=== PATIENT | female | born 1990 | race Caucasian/White ===

== ENCOUNTER 2020-03-13 09:18 | Outpatient (CLI) | payer SELFPAY ==
--- NOTE | 2020-03-13 09:24 | US_ITS ---
STUDY: SECOND AND THIRD TRIMESTER OBSTETRICAL ULTRASOUND - LIMITED REASON FOR EXAM: Female, 29 years old GROWTH. LMP: 06/28/2019 PRIOR ULTRASOUND: None. TECHNIQUE: Transabdominal TECHNICAL QUALITY: Adequate. FINDINGS: There is a single intrauterine fetus. The fetus is in a cephalic presentation. There is demonstrated cardiac activity with a heart rate of 133 bpm. There is a normal amniotic fluid volume. The largest amniotic fluid pocket measures 4.5 cm. The amniotic fluid index (ANTON) is 13.88 cm. The placenta is anterior in location and is not low lying. There are Grade 2 placental changes. The cervix measures 6.3 cm in length. BIOMETRY: BPD: 9.59 cm: 39 weeks, 1 days HC: 35 cm: 40 weeks, 5 days AC: 36.21 cm: 40 weeks, 0 days FL: 7.22 cm: 36 weeks, 6 days Age by LMP: 37 weeks, 0 days. THERESA by LMP: 04/03/2020. age by current US: 39 weeks, 1 days. THERESA by current US: 03/19/2020. Estimated weight: 3763 grams, +/- 564 grams, 96.6 percentile. US/OB Limited With Biometrics IMPRESSION: Single live intrauterine gestation with a mean gestational age of 39 weeks and 1 day. Electronically Signed: Clifford Guerrero, at 11:22 EST , Service support ,
== END 2020-03-13 10:25 | disposition home or self-care (01) ==
LOC: US 09:35 → WP 10:40
PROVIDERS: Referring Provider Obstetrics & Gynecology; Visit Provider Obstetrics & Gynecology
DX: O26.849 Uterine size-date discrepancy, unspecified trimester (principal); Z3A.00 Weeks of gestation of pregnancy not specified
CPT/HCPCS: 76816

== ENCOUNTER → 2021-09-12 | Outpatient (CLI) | payer SELFPAY | END | disposition home or self-care (01) | LOC: LABSPEC 09-13 07:15 | PROVIDERS: Referring Provider Obstetrics & Gynecology; Visit Provider Obstetrics & Gynecology | DX: R31.9 Hematuria, unspecified (principal) | CPT/HCPCS: 87086; 87088 ==

== ENCOUNTER → 2021-09-24 | Outpatient (CLI) | payer SELFPAY ==
--- NOTE | 2021-09-24 13:37 | US_ITS ---
STUDY: SECOND AND THIRD TRIMESTER OBSTETRICAL ULTRASOUND REASON FOR EXAM: Female, 30 years old . Anatomy scan. LMP: 04/29/2021. TECHNIQUE: Transabdominal TECHNICAL QUALITY: Adequate. PRIOR ULTRASOUND: None. FINDINGS: There is a single intrauterine fetus. The fetus is in a variable presentation. There is demonstrated cardiac activity with a heart rate of 153 bpm. There is a normal amniotic fluid volume. The largest amniotic fluid pocket measures 5.4 cm x 5.2 cm. The amniotic fluid index (ANTON) is within normal limits. The placenta is anterior in location and is not low lying. There are Grade 0 placental changes. The cervix measures 4.8 cm in length. The adnexal regions are not visualized. BIOMETRY: BPD: 5.68 cm: 23 weeks, 2 days HC: 21.28 cm: 23 weeks, 2 days AC: 17.86 cm: 22 weeks, 5 days FL: 4.01 cm: 20 weeks, 6 days CI: 76% FL/BPD: 71% FL/HC: FL/AC: 22.5% HC/AC: 1.19 age by current US: 23 weeks, 0 days. THERESA by current US: 01/21/2022. Estimated weight: 547 grams, +/- 82 grams, 99 %. Age by LMP: 21 weeks, 1 days. THERESA by LMP: 02/03/2022. ANATOMY: Gender: Female Cranium: Normal lateral ventricles. Normal choroid plexus. Normal cerebellum. Normal cisterna magna. Normal face, nose and lips. Chest: Normal 4-chamber heart. Abdomen/Pelvis: Normal diaphragm. Normal stomach. Normal abdominal wall. Normal cord insertion. Normal 3 vessel cord. Normal kidneys. Normal bladder. Spine: Some visualization of the cervical, thoracic, lumbar spine and sacrum. Extremities: Normal bilateral upper extremities. Normal bilateral lower extremities. IMPRESSION: Single live intrauterine gestation with mean gestational age of 23 weeks. Electronically Signed: Clifford Guerrero MD at 9:34 EDT , STUDY: FIRST TRIMESTER OBSTETRICAL ULTRASOUND REASON FOR EXAM: Female, 30 years old. Cervical length measurement. LMP: 04/29/2021. TECHNIQUE: Transvaginal TECHNICAL QUALITY: Adequate. PRIOR ULTRASOUND: None. FINDINGS: Cervical length measurement is 4.8 cm. US/OB Anatomy Scan IMPRESSION: Cervical length measurement is 4.8 cm. Electronically Signed: Clifford Guerrero MD at 9:34 EDT ,
== END | disposition home or self-care (01) ==
LOC: OPUS 13:36
PROVIDERS: Visit Provider Obstetrics & Gynecology
DX: Z34.90 Encounter for supervision of normal pregnancy, unspecified, unspecified trimester (principal)
CPT/HCPCS: 76805; 76817

== ENCOUNTER → 2021-10-02 | Outpatient (CLI) | payer SELFPAY ==
[2021-10-02 11:19] LABS: Absolute Lymphocyte Count 1.65 X10^3/uL (0.83-4.51); Absolute Neutrophil Count 6.8 X10^3/uL (2.0-7.7); Basophil# 0.02 X10^3/uL; Basophil% 0.2 % (0-1); Eosinophil# 0.07 X10^3/uL; Eosinophils% 0.8 % (0-5); Hematocrit 34.9 % (37-47); Hemoglobin 11.7 g/dL (12.0-15.0); Lymphocyte # 1.65 X10^3/ul (0.83-4.51); Lymphocyte % 18.3 % (19-41); Mean Corp Hgb Conc 33.5 g/dL (32-36); Mean Corpuscular Hgb 30.8 pg (27.0-32.0); Mean Corpuscular Volume 91.8 fL (81-99); Mean Platelet Vol. 9.2 fl (6.2-12.0); Monocyte# 0.45 X10^3/uL; NRBC Flagged by Analyzer 0 % (0-5); Neutrophil # 6.77 X10^3/uL (2.7-7.7); Neutrophil % 74.9 % (47-70); Platelet Count 207 K/mm3 (150-450); RBC Distribution Width CV 13.2 % (11.6-14.6); RBC Distribution Width SD 44.2 fl (35.1-43.9)
[2021-10-02 11:44] LABS: ALB/GLOB Ratio 0.8 RATIO (0.9-2.4); AST(SGOT) 15 U/L (15-37); Alanine Aminotransfer ALT/SGPT 19 U/L (13-56); Albumin, Serum 3.1 g/dL (3.2-5.0); Alkaline Phosphatase 47 U/L (45-117); Anion Gap 5 (5-15); BUN 7 mg/dL (7-18); BUN/Creat Ratio 11.6 RATIO (10-20); Chloride 108 mmol/L (98-107); EST Glomerular Filtration Rate 122 mL/min (>60); Est Glom Filt Rate - Afr Amer 147 mL/min (>60); Globulin 3.8 g/dL (2.2-4.2); Glucose 94 mg/dL (74-106); Potassium 4.5 mmol/L (3.5-5.1); Protein, Total 6.9 g/dL (6.4-8.2); Sodium Level 139 mmol/L (136-145)
== END | disposition home or self-care (01) ==
PROVIDERS: Referring Provider Obstetrics & Gynecology; Visit Provider Obstetrics & Gynecology
DX: O99.719 Diseases of the skin and subcutaneous tissue complicating pregnancy, unspecified trimester (principal); L29.9 Pruritus, unspecified; Z3A.00 Weeks of gestation of pregnancy not specified
CPT/HCPCS: 36415; 80053; 85025

== ENCOUNTER → 2021-11-05 | Outpatient (CLI) | payer SELFPAY ==
[2021-11-05 14:30] LABS: Glucose Challenge Gest 1H 50g 108 mg/dL (70-140)
== END | disposition home or self-care (01) ==
PROVIDERS: PCP Physician Assistant; Referring Provider Obstetrics & Gynecology; Visit Provider Obstetrics & Gynecology
DX: Z13.1 Encounter for screening for diabetes mellitus (principal)
CPT/HCPCS: 36415; 82950

== ENCOUNTER → 2021-12-31 | Outpatient (CLI) | payer SELFPAY ==
[2021-12-31 16:05] LABS: Absolute Lymphocyte Count 2.15 X10^3/uL (0.83-4.51); Absolute Neutrophil Count 5.7 X10^3/uL (2.0-7.7); Basophil# 0.02 X10^3/uL; Basophil% 0.2 % (0-1); Eosinophil# 0.09 X10^3/uL; Hemoglobin 11.6 g/dL (12.0-15.0); Lymphocyte # 2.15 X10^3/ul (0.83-4.51); Mean Corp Hgb Conc 34.1 g/dL (32-36); Mean Corpuscular Hgb 31.5 pg (27.0-32.0); Mean Corpuscular Volume 92.4 fL (81-99); Mean Platelet Vol. 9.1 fl (6.2-12.0); Monocyte# 0.58 X10^3/uL; Monocyte% 6.8 % (0-10); NRBC Flagged by Analyzer 0 % (0-5); Neutrophil # 5.68 X10^3/uL (2.7-7.7); Neutrophil % 66.2 % (47-70); Platelet Count 195 K/mm3 (150-450); RBC Distribution Width SD 47.1 fl (35.1-43.9); Red Blood Count 3.68 M/mm3 (4.2-5.4); White Blood Count 8.6 K/mm3 (4.4-11.0)
--- NOTE | 2021-12-31 16:07 | US_ITS ---
STUDY: SECOND AND THIRD TRIMESTER OBSTETRICAL ULTRASOUND - LIMITED REASON FOR EXAM: Female, 31 years old. growth. LMP: 04/29/2021. PRIOR ULTRASOUND: 09/24/2021. TECHNIQUE: Transabdominal and Transvaginal TECHNICAL QUALITY: Adequate. FINDINGS: There is a single intrauterine fetus. The fetus is in a cephalic presentation. There is demonstrated cardiac activity with a heart rate of 134 bpm. There is a normal amniotic fluid volume. The largest amniotic fluid pocket measures 6.9 cm. The amniotic fluid index (ANTON) is 18.94 cm. The placenta is anterior in location and is not low lying. There are Grade 2 placental changes. Question placental lakes. The cervix measures 4.7 cm in length. There is fluid versus mucus within the cervical canal. BIOMETRY: BPD: 9.04 cm: 36 weeks, 4 days HC: 33.12 cm: 37 weeks, 5 days AC: 32.6 cm: 36 weeks, 4 days FL: 7.14 cm: 36 weeks, 4 days Age by LMP: 35 weeks, 1 days. THERESA by LMP: 02/03/2022.. age by prior US: 37 weeks, 0 days. THEERSA by prior US: 01/21/2022.. age by current US: 36 weeks, 6 days. THERESA by current US: 01/22/2022.. Estimated weight: 3005 grams, +/- 451 grams, 67 percentile. Gender: Indeterminant US/OB Limited With Biometrics IMPRESSION: 1. Live single intrauterine at 36 weeks, 6 days. THERESA is 01/22/2022. This correlates with adequate interval growth since the prior ultrasound. 2. EFW of 3005 g. 3. ANTON of 18.94 cm. 4. Anterior grade 2 placenta. 5. Vertex presentation. 6. Fluid seen within the cervical canal. Electronically Signed: Orlando Morales DO at 20:34 EDT Reading Location ID and State: [facility] / [place] Tel [phone], Service support ,
== END | disposition home or self-care (01) ==
PROVIDERS: PCP Physician Assistant; Referring Provider Obstetrics & Gynecology; Visit Provider Obstetrics & Gynecology
DX: O99.019 Anemia complicating pregnancy, unspecified trimester (principal); Z3A.00 Weeks of gestation of pregnancy not specified; O36.60X0 Maternal care for excessive fetal growth, unspecified trimester, not applicable or unspecified
CPT/HCPCS: 36415; 76816; 85025; 87081

== ENCOUNTER 2022-01-30 10:09 | Inpatient (IN) | payer SELFPAY ==
[2022-01-30] VITALS (15 sets, daily range): BP systolic 94–130; BP diastolic 43–80; PULSE 65–85; RESP 16–18; TEMP 36.1–36.9; O2SAT 96–100; BMI 37.1
[2022-01-30] MEDS: Lactated Ringers 1,000 ML 999 ML IV (10:55)
[2022-01-30] MEDS: Acetaminophen 500 MG Tablet 1000 MG PO ×2 (10:58→17:44)
--- NOTE | 2022-01-30 11:07 | NURSING ---
Pt stated she did not receive ensure or soap to use in shower prior to surgery.
[2022-01-30 11:16] LABS: Absolute Lymphocyte Count 1.59 X10^3/uL (0.83-4.51); Absolute Neutrophil Count 5.2 X10^3/uL (2.0-7.7); Basophil# 0.02 X10^3/uL; Basophil% 0.3 % (0-1); Eosinophil# 0.05 X10^3/uL; Eosinophils% 0.7 % (0-5); Hemoglobin 12.4 g/dL (12.0-15.0); Lymphocyte # 1.59 X10^3/ul (0.83-4.51); Lymphocyte % 21.6 % (19-41); Mean Corp Hgb Conc 34.4 g/dL (32-36); Mean Corpuscular Hgb 32.4 pg (27.0-32.0); Mean Platelet Vol. 9.5 fl (6.2-12.0); Monocyte# 0.45 X10^3/uL; Monocyte% 6.1 % (0-10); NRBC Flagged by Analyzer 0 % (0-5); Neutrophil % 70.8 % (47-70); Platelet Count 190 K/mm3 (150-450); RBC Distribution Width CV 13.9 % (11.6-14.6); RBC Distribution Width SD 47.7 fl (35.1-43.9); Red Blood Count 3.83 M/mm3 (4.2-5.4); White Blood Count 7.4 K/mm3 (4.4-11.0)
--- NOTE | 2022-01-30 11:29 | HP.PCM.OB_ITS ---
HPI - General General Date of Admission: 01/30/22 HPI Narrative SIMBA ACOSTA, is a 31 @ 40 weeks 3 who presents to labor and delivery for repeat section. Her cervix remains closed and we discussed the risks vs benefits of IOL and the decision was made to proceed with repeat section . Maternal Data Information THERESA Calculator Estimated Delivery Date Method Current WG Current Estimate 01/27/22 LMP (Certain) 40w 3d PFSH PFS Medical History (Updated 01/21/22 @ 15:28 by Faby Aguero) Post depression Home Medications prenat.vits,gisselle,[id number] 1 tab PO DAILY 03/13/20 [History Last Taken 01/29/22] calcium carbonate 500 mg calcium (1,250 mg) tablet 500 mg PO DAILY supplement 09/12/21 [History Last Taken 01/29/22] ferrous sulfate 325 mg (65 mg iron) tablet 325 mg PO DAILY anemia 09/12/21 [History Last Taken 01/29/22] Allergy/AdvReac Type Severity Reaction Status Date / Time No Known Allergies Allergy Verified 01/30/22 10:34 Surgical History (Updated 01/23/22 @ 12:27 by Halima Lorenzo) S/P Social History Smoking Status: Never smoker alcohol intake: never substance use type: does not use what type of physical activity do you participate in: none seatbelt use: always do you feel safe at home: Yes additional social history: Yunior- dairy History 8 Elective abortions Hx Para 5 Spontaneous abortions 2 Hx # Term Pregnancies Ectopic pregnancies Hx # Pregnancies Multiple births # of living children Past Pregnancies Del. Date Name GA/Weeks Outcome Route Bth Weight Infant Gen Labor Lgth Anesthesia Del Locatn Provider FOB 11/11/11 Jose 40 live - full term 9 lbs Male 20 fouzia rs none [facility] Angelique Mojica 09/04/13 Leonardo 41 live - full term 9lbs 15oz Male 12 hours none home Angelique Cali/Anne Mojica 08/06/15 Adis 42 live - full term 9lbs 6oz Male non e home Anne Mojica 03/08/17 Radha 41 live - full term 7lbs 9oz Female alina Umaña/Dr. Mojica 03/28/20 Yassine 39 live - full term 8lbs 9oz Male Maria Dr[address] Bakari Mojica Delivery Date: 11/11/11 Last Updated by: Faby Aguero Severely tore (had to repair with surgery) Delivery Date: 09/04/13 Last Updated by: Faby Aguero No issues with or delivery Tore Delivery Date: 08/06/15 Last Updated by: Faby Aguero No issues with or delivery Tore Delivery Date: 03/08/17 Last Updated by: Zarina Donato nuchal cord x1, meconium, decels Delivery Date: 03/28/20 Last Updated by: Faby Aguero No issues during . Partial placenta rupture. STAT Visit Details OB Flowsheet Initial Weight: Not Recorded Date -?-?-?-?-?-?-?-?-?-?-?-?- EGA Weight BP Urine Prot -?-?-?-?-?-?-?-?-?-?-?-?- Glucose FHR FuHt Pres Dilation -?-?-?-?-?-?-?-?-?-?-?-?- Effaced St Visit Note 09/12/21 -?-?-?-?-?-?-?-?-?-?-?-?- 20w 3d 223 lb 6 oz 100/70 Nega tive -?-?-?-?-?-?-?-?-?-?-?-?- Negative 145 -?-?-?-?-?-?-?-?-?-?-?-?- JV- see HPI pt w illing to come back for an anatomy scan. we discussed but wll need op note due to emergency and increased chance that this was vertical. 10/02/21 -?-?-?-?-?-?-?-?-?-?-?-?- 23w 2d 222 lb 120/80 Negative -?-?-?-?-?-?-?-?-?-?-?-?- Negative -?-?-?-?-?-?-?-?-?-?-?-?- 10/03/21 -?-?-?-?-?-?-?-?-?-?-?-?- 23w 3d 223 lb 100/72 Negative -?-?-?-?-?-?-?-?-?-?-?-?- Negative 153 -?-?-?-?-?-?-?-?-?-?-?-?- JV- pt has a lac y rash on arms and legs as well as abdomen. She gave us a corrected LMP. anatomy scan was normal. LFTs were normal. waiting on uric acid level. will try vistaril. 11/05/21 -?-?-?-?-?-?-?-?-?-?-?-?- 28w 1d 228 lb 118/68 Negative -?-?-?-?-?-?-?-?-?-?-?-?- Negative 141 -?-?-?-?-?-?-?-?-?-?-?-?- JV- gct today. p t will be seeing Anne Umaña in 2 weeks and will alternate with us and her going forward unless needs NSTs for diabets or htn, etc. 12/03/21 -?-?-?-?-?-?-?-?-?-?-?-?- 32w 1d 235 lb 110/67 Negative -?-?-?-?-?-?-?-?-?-?-?-?- Negative 144 34 -?-?-?-?-?--?-?-?-?-?-?-?- JV- notes review ed from Anne Umaña's office. hg istat in her office was 9 ( a significant drop from her October 01 blood draw) recommend official cbc. pt states that she has a doctor in her town that will do the test for $25 and will call us with results. 12/31/21 -?-?-?-?-?-?-?-?-?-?-?-?- 36w 1d 236 lb 98/64 Negative -?-?-?-?-?-?-?-?-?-?-?--?- Negative 145 37 Cephalic 1 -?-?-?-?-?-?-?-?-?-?-?-?- 0 -4 JV-no lof, vaginal bleeding, or dec fm. ultrasound and rpt cbc. she will see next week then weekly with us aftet 37 weeks. JV-no lof, vaginal bleeding, or dec fm. ultrasound and rpt cbc. she will see next week then weekly with us after 37 weeks. we discussed either induction or rpt section at 40 weeks. 01/14/22 -?-?-?-?-?-?-?-?-?-?-?-?- 38w 1d 239 lb 2 oz 132/79 Nega tive -?-?-?-?-?-?-?-?-?-?-?-?- Negative 150 38 Cephalic 2 -?-?-?-?-?-?-?-?-?-?-?-?- 50 -4 JV- normal us last week. planning IOL at 40 weeks if no labor. 01/21/22 -?-?-?-?-?-?-?-?-?-?-?-?- 39w 1d 238 lb 8 oz 115/78 Nega tive -?-?-?-?-?-?-?-?-?-?-?-?- Negative 145 39 Cephalic 1 -?-?-?-?-?-?-?-?-?-?-?-?- 50 -4 LC- no lof , ctx or vb. active fetus. cervical exam unchanged. will be seen in office wednesday, if no change in cervical exam will proceed with rpt c/s for wednesday. collaborated with Dr. Parks Constitutional Constitutional: Denies change in weight, fatigue, fever(s), headache(s), poor appetite or weakness Eyes Eyes: Denies blurry vision, change in vision, seeing flashes or spots in vision ENT HEENT: Denies dizziness, headache(s), loss taste/smell or sore throat Cardiovascular Cardiovascular: Denies chest pain, dizziness, dyspnea, irregular heart rhythm, leg edema, palpitations, rapid heart rate or vomiting Respiratory/Chest Respiratory/Chest: Denies chest tightness, cough, dyspnea or breast pain Gastrointestinal Gastrointestinal: Denies abdominal pain, anorexia, constipation, cramping, diarrhea, hemorrhoids, vomiting or weight changes Genitourinary Genitourinary: Denies dysuria, flank pain, genital lesions, genital pain, urinary frequency or urinary urgency Musculoskeletal Musculoskeletal: Denies back pain, difficulty walking, joint pain, limited range of motion, muscle cramps or numbness Integumentary Integumentary: Denies lesions or unusual bruising Neurologic Neurologic: Denies abnormal movements, abnormal speech, dizziness, numbness, seizure-like activity or syncope Psychiatric Psychiatric: Denies anxiety, behavioral changes, change in appetite, change in libido, cognitive impairment, confusion, depression, difficulty concentrating, hallucinations or suicidal thoughts Endocrine Endocrinology: Denies excessive sweating, polydipsia or polyuria Hematologic/Lymphatic Hematologic/Lymphatic: Denies easy bleeding, easy bruising or lymphadenopathy Allergic/Immunologic Allergic/Immunologic: Denies itchy eyes, lip swelling, seasonal rhinorrhea, rhinitis, throat swelling, tongue swelling, eczemia, wheezing or asthma Vital Signs Vital Signs Vital Signs: 01/30/22 11:07 Temperature 98.4 F Temperature Source Temporal Pulse Rate 81 Respiratory Rate 18 Blood Pressure 123/70 H Blood Pressure Mean 87 Blood Pressure Source Monitor Blood Pressure Position Semi-Fowlers Blood Pressure Location Left Arm Pulse Ox 100 Oxygen Delivery Method Room Air Weight Weight: 237 lb 7.005 oz Body Mass Index (BMI) 37.1 Physical Exam Const alert, oriented x3, no apparent distress and healthy appearing General Appearance: cooperative; Negative for anxious HEENT normocephalic Face and Sinus: normal facial exam Eyes EOMs intact bilaterally and no scleral icterus General Eye: normal appearance of both eyes Neck full ROM and supple Lymph Lymphatic: no lymphadenopathy noted Chest Chest: abnormal inspection of the chest Resp normal respiratory effort Effort and Inspection: able to speak in complete sentences Cardio regular rate GI soft to palpation and non-tender Inspection: gravid Palpation: soft; Negative for tender external exam normal Back/Spine no CVA tenderness Extremity normal to inspection, full ROM and no clubbing, cyanosis or edema General Extremity: Negative for calf tenderness or edema Skin Lesions: no lesions Rashes: no rashes Psych mental status grossly normal Labs Labs Labs: Blood Type Pending Antibody Screen Pending Hct 36.0 % (37-47) L Hgb 12.4 g/dL (12.0-15.0) Pap Smear Negative Obstetrics US Syphilis Total Ab Pending Rubella IgG Antibody Pending Hep Bs Antigen Pending HIV 1&2 Antibody Pending Glucose 1 Hr 50 gm 108 mg/dL (70-140) Miscellaneous Test Assessment & Plan (1) Anemia: (2) PUPP (pruritic urticarial papules and plaques of ): COMMENT: vistaril ordered and supportive care (3) Itching: COMMENT: CBC, CMP & Bile Acids ordered 10/02/21 (4) S/P : COMMENT: due to partial placenta rupture-delivered at [place] plan to share care with Anne Umaña. pt will be seen by us at 28 weeks, anne 30, us 32, etc. she is open to rpt section but hoping for . RLTCS scheduled for 01/30 @ 12 with DELORIS (5) Supervision of normal : COMMENT: Leonardo Garcia Bryan, Lorelle, Raylyn Yunior (6) macrosomia: COMMENT: efw 3800g at 37 weeks, recommend delivery by 40-41 weeks. previous 10lb delivery without complication at home. Baby measuring 99% at anatomy ultrasound. plan to repeat at 36-38 weeks , 12/31 growth US nl 67% (7) : QUALIFIERS: Weeks of gestation: 39 weeks Qualified Code(s): Z3A.39 - 39 weeks gestation of COMMENT: GBS Negative, has seen anne umaña for care. Anatomy norm
[2022-01-30 11:56] LABS: Rubella IgG Reactive (Nonreactive); Syphilis Antibodies Non-reactive
[2022-01-30] MEDS: Sodium Citrate/Citric Acid 30 ML UDC PO (12:08)
[2022-01-30] MEDS: Lactated Ringers 1,000 ML 150 ML IV (12:09)
[2022-01-30 12:20] LABS: HIV - WCH Non-Reactive (Nonreactive); Hepatitis B Surface Antigen Non-Reactive (Nonreactive); Hepatitis C Antibody Non-Reactive (Nonreactive)
[2022-01-30] MEDS: Cefazolin 2 GM in 0.9% Normal Saline 100 ML IV (12:21)
--- NOTE | 2022-01-30 12:25 | DCINST_ITS ---
Discharge Instructions Diet Discharge Diet: No restrictions Activity Discharge Activity: May Not Drive (for 2 weeks or while taking narcotic pain medications.), May Shower and May Take a Tub Bath (in 7 days.) May resume sexual activity in: 4-6 weeks Weight Bearing Status: Full weight bearing Lifting Restrictions: 20 pounds Dressing / Incision Call your doctor if your incision/area has: Continuous Slow Oozing, Sudden Increased Bleeding, Increased Pain/ Swelling, Increased Redness and Foul Smelling Discharge Call your doctor if you observe: Fever of 101 or Higher and Using more than 1 pad per hour Suture Line Care: Avoid Pulling/Pushing and Avoid Pinching/Bending Cleanse incision/area with: Soap & Water and Keep Dressing Clean & Dry Follow Up Care Please Follow Up With: Mavis Graham DO When: Call [phone] to make an appointment for an incision check in 1-2 weeks. Test Results: Test results from this visit will be discussed in further detail at your follow- up appointment, if applicable. Discharge Plan Admission Admit Date/Time: 01/30/22 10:09 Primary Reason for Your Visit: section Attending Provider: Mavis Graham Primary Care Provider: Pako Regan Discharge Orders/Prescriptions Prescriptions: New ibuprofen 600 mg tablet 600 mg PO Q6H PRN (Reason: pain) 7 Days Qty: 28 0RF Rx Instructions: one tab every 6 hrs as needed for mild to moderate pain oxycodone-acetaminophen [Percocet] 5-325 mg tablet 1 tab PO Q4H PRN (Reason: pain) 7 Days Qty: 20 0RF Continued prenat.vits,gisselle,[id number]-mzkbr Tablet 1 tab PO DAILY ferrous sulfate 325 mg (65 mg iron) tablet 325 mg PO DAILY calcium carbonate 500 mg calcium (1,250 mg) tablet 500 mg PO DAILY Referrals / Follow Up: Pako Regan PA-C [Primary Care Provider] - Disposition Disposition (needs filled in before D/C Order can be placed): Home, Self Care
--- NOTE | 2022-01-30 13:13 | OP.PCM_ITS ---
Assessment & Plan (1) Anemia: (2) PUPP (pruritic urticarial papules and plaques of ): COMMENT: vistaril ordered and supportive care (3) Itching: COMMENT: CBC, CMP & Bile Acids ordered 10/02/21 (4) S/P : COMMENT: due to partial placenta rupture-delivered at [place] plan to share care with Migue Hoover. pt will be seen by us at 28 weeks, migue 30, us 32, etc. she is open to rpt section but hoping for . RLTCS scheduled for 01/30 @ 12 with JV (5) Supervision of normal : COMMENT: Jose, Leonardo, Adis, Radha, Yassine Yunior (6) macrosomia: COMMENT: efw 3800g at 37 weeks, recommend delivery by 40-41 weeks. previous 10lb delivery without complication at home. Baby measuring 99% at anatomy ultrasound. plan to repeat at 36-38 weeks , 12/31 growth US nl 67% (7) : QUALIFIERS: Weeks of gestation: 39 weeks Qualified Code(s): Z3A.39 - 39 weeks gestation of COMMENT: GBS Negative, has seen migue hoover for care. Anatomy norm Maternal Data Information THERESA Calculator Estimated Delivery Date Method Current WG Current Estimate 01/27/22 LMP (Certain) 40w 3d Final THERESA: 01/27/22 Final THERESA Source: LMP Gestational age: 40 weeks 3 days Details Operative Information Date of Procedure: 01/30/22 Pre-Operative Diagnosis: 40 weeks 3 days, prior section Post-Operative Diagnosis: 40 weeks 3 days, prior section Indications for : Repeat Elective Classification: Scheduled Procedure Type: low transverse Type of Anesthesia: Spinal Anesthesiologist: Shimon Holden Antibiotic Given: Ancef 2 grams IV x1 Estimated Blood Loss: 800cc Fluids Replaced: 600cc Findings Description of Procedure: The patient is a 31 y/o presented for repeat . Spinal anesthesia was placed without difficulty. Hill catheter was placed. The patient was placed in the dorsal supine position with leftward tilt. Patient was prepped and draped in the normal sterile fashion. Pfannenstiel skin incision was made with the scalpel and carried through to the underlying layer of fascia with the scalpel. Fascia was nicked in the midline and the incision extended laterally. The rectus bellies were dissected off superiorly and inferiorly with out complication both sharply and bluntly. The peritoneum was entered digitally. The incision was stretched and a low transverse uterine incision was made with the scalpel. The 's head was delivered atraumatically followed by the anterior and posterior shoulders without complication the rest of the infant delivered. The cord was clamped and cut and the was handed off to awaiting nurse. The placenta was delivered spontaneously immediately following and was noted to be intact and have a three-vessel cord. The uterus was exteriorized cleared of all clots and debris, and the incision was closed in a double layer closure using #1 Vicryl and #1 Monocryl. The ovaries and fallopian tubes were noted to be within normal limits. The uterus was returned to the maternal abdomen and gutters were cleared of all clots and debris. The peritoneum was closed with 3-0 Monocryl in a running fashion. Gloves were changed prior to fascial closure. Fascia was closed with 0 PDS in a running fashion. Subcutaneous tissue was copiously irrigated and the skin was closed with 3-0 Monocryl in a subcuticular fashion. Mepilex dressing was applied without complication. Patient was taken to recovery in stable condition. It was discussed with the patient that based on the clinical information obtained during this encounter, combined with her history, at this time I would recommend for future deliveries if further pregnancies are desired. Presentation: Positive for Vertex Amniotic Membrane Rupture Type: Artificial Amniotic Fluid Description: Clear Placental Delivery Description: Manual Removal Placenta Disposition: [facility] Cord Vessel Description: 3 Vessels Cord Entanglement: True Knot(s) (x 1 ) Infant A Gender: Female (1 minute): 8 (5 minute): 9 Delayed Cord Clamping: Yes Complications Risks of Surgery Discussed w/Patient: Bleeding, Anesthesia Risks, Infection, Need for Future C-Sections and Injury to surrounding structure(s) including bowel and bladder Complications: none Admit VTE Documentation VTE Present on Admission: Yes VTE Mechan Device Prophylaxis: SCD's VTE Pharm Prophylaxis Ordered: Yes Multi Select Codes Urinary/Genital Urinary/Genital CPT Codes: 50162 [facility]
[2022-01-30] MEDS: Oxytocin 30 units/NS 500 ml 30 UNITS/500 ML IV.SOLN 167 UNITS IV (13:42)
[2022-01-30] MEDS: 0.9% Saline Lock 10 ML Syringe IV (14:27)
[2022-01-30] MEDS: Ketorolac 30 MG/ML Syringe IV ×2 (14:27→20:27)
--- NOTE | 2022-01-30 16:10 | NURSING ---
Report given to Ebony LAYTON, taking over pt care at this time.
[2022-01-30] MEDS: Lactated Ringers 1,000 ML 100 ML IV (16:40)
[2022-01-30 17:49] LABS: Chlamydia Trachomatis by PCR Negative (Negative); Neisserai gonorrhoeae by PCR Negative (Negative); Probe Check PASS; Sample Adequacy Control PASS; Specimen Processing Control PASS
--- NOTE | 2022-01-30 19:46 | CM.ED ---
Addendum entered by Guera Ramirez 01/30/22 20:02: MOB was provided handout on PPD support including information on phone and on line support and resources for new mothers. MOB was appreciative. Guera Ramirez VISITOR SERVICES TECHNICIAN SANTY Original Note: RITA Note Referral Source: WP SALINAS Referral Reason: History of PPD SW spoke to RN Ebony who voiced no concerns regarding MOB and care of the nb. Mom: Kirstie Beyer NB born at 40 weeks. Due date is 01/27/22 PNC: Anne Umaña and Dr. Arthur Control: None Baby: Ty REID 01/30/22 Apgars: 01/16 Weight: 3525 grams Press Worker Helper: Pako Regan at [facility]. MOB reports that breast feeding is going well and the nb immediately latched on. SW was in room talking to MOB and the MOB was feeding the nb and the nb was eating well. MOB's other children: Jose, age 10, Leonardo age 8, Adis age 6, Radha (female) age 4 and Yassine age 1. MOB said that her mother usually keeps the older children for a few days following the MOB's delivery. Housing: ELLA and her reside in a house with 6 kids. [place]. Transportation: MOB said that they are horse and buggy mennonite but have a driver courier they use for transportation. Supplies: MOB said that she has a carseat, crib, clothes, and disposable diapers. She reports that she has all the nb supplies. Supports: MOB said that her sister in law, who resides 2 miles away, will help her for 2 weeks and then as needed. MOB said that her mother resides 11 miles away and the FOB's mother resides 2 miles away and are available to assist and be a support. Education Level: MOB completed the 8th grade. No learning issues. Employment: MOB Is not employed outside the home. 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 Agency Involvement: MOB denied any JFS, WIC, HMG, Counseling, Legal and CSB involvement. FOB's Name: Yunior Time Together: 11 years Involved with the NB: Yes, per MOB. MOB reports that the FOB went home to work on the farm. 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 YOLIE is father to all of MOB's other children FOJose's MH/AOD and DV History: Denied by MOB Maternal MH History: ELLA reports that after her 2nd child she was not able to focus. MOB said that she became very impatient with the older children and then would feel guilty about how she felt. MOB denied any SI. MOB's current MH screen noted no DV, no SI or HI. MOB said that she never went to a doctor she read a book. MOB said that she had also taken natural supplements. SW asked MOB if she plans to take natural supplements if she has symptoms of PPD and MOB said that she hasn't had PPD with any of her other children. MOB said that she realized that she needs to let people help her after she gives and also to not expect to get everything done. MOB said that she feels that the time after delivery is important for the MOB to take care of herself. MOB was educated on PPD. MOB was educated on PPD, Shaken Baby and Safe Sleeping MOB denied any alcohol, tobacco or drug use. MOB voiced no discharge concerns. She indicated she is unsure if she is going home on Wednesday or Wednesday. MOB are horse and buggy mennonite and thus are self pay and have no insurance which is consistent with their cultural and judaism beliefs. Plan: Home at discharge. Gurea MADERA
[2022-01-30] MEDS: Ondansetron 4 MG/2 ML Vial IV (20:32)
--- NOTE | 2022-01-30 22:56 | NURSING ---
2220- informed in report that pt was unwilling to ambulate, pt then very nauseated and not willing to get up until now.
[2022-01-31] MEDS: Acetaminophen 500 MG Tablet 1000 MG PO ×3 (00:12→15:09)
[2022-01-31 00:17] VITALS: BP 119/65; PULSE 68; RESP 16; TEMP 36.8; O2SAT 98
[2022-01-31] MEDS: Ketorolac 30 MG/ML Syringe IV ×2 (02:39→10:28)
[2022-01-31] MEDS: Lactated Ringers 1,000 ML 100 ML IV (02:50)
[2022-01-31 04:20] VITALS: BP 111/64; PULSE 63; RESP 16; TEMP 36.8; O2SAT 98
[2022-01-31 05:18] LABS: Hematocrit 26.5 % (37-47); Hemoglobin 8.8 g/dL (12.0-15.0); Mean Corp Hgb Conc 33.2 g/dL (32-36); Mean Corpuscular Hgb 31.7 pg (27.0-32.0); Mean Corpuscular Volume 95.3 fL (81-99); Mean Platelet Vol. 9.2 fl (6.2-12.0); Platelet Count 143 K/mm3 (150-450); RBC Distribution Width CV 14.2 % (11.6-14.6); RBC Distribution Width SD 49.4 fl (35.1-43.9); Red Blood Count 2.78 M/mm3 (4.2-5.4); White Blood Count 9.4 K/mm3 (4.4-11.0)
[2022-01-31 07:47] VITALS: BP 106/72; PULSE 70; RESP 16; TEMP 36.2
--- NOTE | 2022-01-31 08:58 | PCM.PN.OB ---
Subjective Subjective Patient doing well without complaints. Tolerating PO. Ambulating and voiding without difficulty. feeding well. Denies chest pain, shortness of breath, calf pain/swelling, fevers, chills, lightheadedness. Objective Data Objective Data Vital Signs: Vital Signs Temp Pulse Resp BP Pulse Ox O2 Del Method 97.2 F L 70 16 106/72 98 Room Air 01/31/22 07:47 01/31/22 07:47 01/31/22 07:47 01/31/22 07:47 01/31/22 04:20 01/31/22 07:47 Oxygen Delivery Method Room Air Weight: 237 lb 7.005 oz Body Mass Index (BMI) 37.1 Intake & Output: Intake and Output for Last 24 Hours 01/29/22 01/30/22 01/31/22 23:59 23:59 23:59 Intake Total 2927.5 / 2927.5 1408.33 / 1408.33 Output Total 700 / 700 400 / 400 Balance 2227.5 / 2227.5 1008.33 / 1008.33 Lab / Micro Data Result Diagrams: 01/31/22 05:10 Labs: Laboratory Results - last 24 hr 01/30/22 10:55: WBC 7.4, RBC 3.83 L, Hgb 12.4, Hct 36.0 L, MCV 94.0, MCH 32.4 H, MCHC 34.4, RDW Std Deviation 47.7 H, RDW Coeff of Lesli 13.9, Plt Count 190, MPV 9.5, Immature Gran % (Auto) 0.500, Neut % (Auto) 70.8 H, Lymph % (Auto) 21.6, Aurora % (Auto) 6.1, Eos % (Auto) 0.7, Baso % (Auto) 0.3, Absolute Neuts (auto) 5.2, Absolute Lymphs (auto) 1.59, Nucleated RBC % 0 01/30/22 10:55: Syphilis Total Ab Non-reactive, Rubella IgG Antibody Reactive 01/30/22 10:55: Blood Type O POSITIVE, Antibody Screen NEGATIVE 01/30/22 10:55: Hep Bs Antigen Non-Reactive, Hepatitis C Antibody Non-Reactive, HIV 1&2 Antibody Non-Reactive 01/30/22 11:25: Chlam trachomat DNA PCR Negative, N.gonorrhoeae DNA (PCR) Negative 01/31/22 05:10: WBC 9.4, RBC 2.78 L, Hgb 8.8 L, Hct 26.5 L, MCV 95.3, MCH 31.7, MCHC 33.2, RDW Std Deviation 49.4 H, RDW Coeff of Lesli 14.2, Plt Count 143 L, MPV 9.2 Micro: Microbiology 01/30/22 10:55 Nasal Secretion SARS-CoV-2 Antigen (Rapid) - Final ROS Constitutional Constitutional: Reports systems reviewed and no addt'l complaints, except as documented Cardiovascular Cardiovascular: Reports systems reviewed and no addt'l complaints, except as documented Respiratory/Chest Respiratory/Chest: Reports systems reviewed and no addt'l complaints, except as documented Gastrointestinal Gastrointestinal: Reports systems reviewed and no addt'l complaints, except as documented Physical Exam Const alert, oriented x3 and no apparent distress HEENT Head and Scalp: atraumatic Resp normal respiratory effort GI soft to palpation and non-tender Inspection: incision intact, healing well and drainage (none) Bimanual Exam - Vag & Uterus: uterus non-tender Uterus Palpation: uterus fundus firm (below Umbilicus) Assessment & Plan (1) Status post section: PLAN: Plan s/p LTCS PPD # 1 1. routine post care 2. breast feeding- support given 3. rh positive 4. rubella immune
[2022-01-31 12:00] VITALS: BP 118/72; PULSE 72; RESP 16; TEMP 36.4; O2SAT 97
--- NOTE | 2022-01-31 13:29 | CM.ED ---
SW Note SW met with MOB and FOB. SW inquired if they were interested in medicaid application and they declined. No further social work needs or issues at this time. Guera FALCON
[2022-01-31] MEDS: Calcium (Elemental) 500 MG Tablet PO (14:28)
[2022-01-31] MEDS: Senna/Docusate Sodium 1 Tablet PO (14:28)
[2022-01-31] MEDS: Ferrous Sulfate 325 MG Tablet PO (14:28)
[2022-01-31] MEDS: Enoxaparin 40 MG/0.4 ML Syringe SC (15:08)
[2022-01-31 16:00] VITALS: BP 124/69; PULSE 75; RESP 16; TEMP 36.4; O2SAT 97
[2022-01-31] MEDS: Ibuprofen 600 MG Tablet PO (20:12)
[2022-01-31 20:15] VITALS: BP 117/76; PULSE 86; RESP 16; TEMP 36.3
[2022-02-01] MEDS: Ibuprofen 600 MG Tablet PO ×2 (01:50→08:20)
[2022-02-01] MEDS: Acetaminophen 500 MG Tablet 1000 MG PO ×2 (01:50→08:22)
[2022-02-01 02:00] VITALS: BP 113/62; PULSE 62; RESP 16; TEMP 36.3; O2SAT 100
--- NOTE | 2022-02-01 08:01 | PCM.PN.OB ---
Subjective Subjective Patient doing well without complaints. Tolerating PO. Ambulating and voiding without difficulty. feeding well. Denies chest pain, shortness of breath, calf pain/swelling, fevers, chills, lightheadedness. Objective Data Objective Data Vital Signs: Vital Signs Temp Pulse Resp BP Pulse Ox O2 Del Method 97.3 F L 62 16 113/62 100 Room Air 02/01/22 02:00 02/01/22 02:00 02/01/22 02:00 02/01/22 02:00 02/01/22 02:00 02/01/22 02:00 Oxygen Delivery Method Room Air Weight: 237 lb 7.005 oz Body Mass Index (BMI) 37.1 Intake & Output: Intake and Output for Last 24 Hours 01/30/22 01/31/22 02/01/22 23:59 23:59 23:59 Intake Total 2927.5 / 2927.5 1408.33 / 1408.33 Output Total 700 / 700 400 / 400 Balance 2227.5 / 2227.5 1008.33 / 1008.33 Lab / Micro Data Result Diagrams: 01/31/22 05:10 Micro: Microbiology 01/30/22 10:55 Nasal Secretion SARS-CoV-2 Antigen (Rapid) - Final ROS Constitutional Constitutional: Reports systems reviewed and no addt'l complaints, except as documented Cardiovascular Cardiovascular: Reports systems reviewed and no addt'l complaints, except as documented Respiratory/Chest Respiratory/Chest: Reports systems reviewed and no addt'l complaints, except as documented Gastrointestinal Gastrointestinal: Reports systems reviewed and no addt'l complaints, except as documented Physical Exam Const alert, oriented x3 and no apparent distress HEENT Head and Scalp: atraumatic Resp normal respiratory effort GI soft to palpation and non-tender Inspection: incision intact, healing well and drainage (none) Bimanual Exam - Vag & Uterus: uterus non-tender Uterus Palpation: uterus fundus firm (below Umbilicus) Assessment & Plan (1) Status post section: (2) Anemia: PLAN: Plan s/p LTCS PPD # 2 1. routine post care 2. breast feeding- support given 3. rh positive 4. rubella immune
[2022-02-01] MEDS: Senna/Docusate Sodium 1 Tablet PO (08:22)
[2022-02-01 10:00] VITALS: BP 107/77; PULSE 65; RESP 18; TEMP 36.9
== END 2022-02-01 10:45 | disposition home or self-care (01) | DRG 788 ==
PROVIDERS: Admitting Provider Obstetrics & Gynecology; PCP Physician Assistant; Referring Provider Obstetrics & Gynecology; Visit Provider Obstetrics & Gynecology
PROC: 10D00Z1 Extraction of Products of Conception, Low, Open Approach (ICD-10-PCS; CPT 59514; principal; 2022-01-30 11:45)
DX: O34.219 Maternal care for unspecified type scar from previous cesarean delivery (principal); O26.86 Pruritic urticarial papules and plaques of pregnancy (PUPPP); O99.02 Anemia complicating childbirth; Z37.0 Single live birth; Z3A.40 40 weeks gestation of pregnancy
CPT/HCPCS: 59025; 59050; 85025; 85027; 86703; 86762; 86780; 86803; 86850; 86900; 86901; 87340; 87426; 87491; 87591; 99218; J7120; A4216; G0378; J2405